=== PATIENT | male | born 1995 | race Two or more races ===

== ENCOUNTER 2024-05-10 11:43 | Inpatient (IN) | payer SELFPAY ==
[2024-05-10] MEDS: Ondansetron 4 MG/2 ML SDV IVPUSH ONE (12:25)
[2024-05-10] MEDS: Sodium Chloride 0.9% 1,000 ML IV ONE ×2 (12:25→15:44)
[2024-05-10] MEDS: Morphine 4 MG/ML Syringe IVPUSH ONE ×2 (12:26→14:33)
[2024-05-10 12:49] LABS: APPEARANCE,URINE CLEAR; BILIRUBIN,URINE NEGATIVE (NEGATIVE); COLOR,URINE YELLOW; GLUCOSE,URINE >=1000 mg/dL (NEGATIVE); KETONES,URINE 40 mg/dL (NEGATIVE); LEUKOCYTE ESTERASE,URINE NEGATIVE (NEGATIVE); NITRITE,URINE NEGATIVE (NEGATIVE); OCCULT BLOOD,URINE NEGATIVE (NEGATIVE); PROTEIN,URINE 100 mg/dL (NEGATIVE); UROBILINOGEN,URINE 0.2 EU/dL (<2.0)
[2024-05-10] MEDS: Ketorolac 30 MG/ML SDV IVPUSH ONE (12:50)
[2024-05-10 13:15] LABS: BASOPHILS ABSOLUTE AUTO 0.04 K/uL (0.00-0.20); BASOPHILS PERCENT AUTO 0.6 % (0.0-1.0); EOSINOPHILS ABSOLUTE AUTO 0.12 K/uL (0.00-0.45); EOSINOPHILS PERCENT AUTO 1.8 % (0.0-6.0); IMMATURE GRAN ABSOLUTE AUTO 0.04 K/uL (0.00-0.05); IMMATURE GRAN PERCENT AUTO 0.6 % (0.0-0.4); LYMPHOCYTES ABSOLUTE AUTO 1.77 K/uL (1.00-4.80); LYMPHOCYTES PERCENT AUTO 27.1 % (24.0-44.0); MEAN CORPUSCULAR VOLUME 86.2 fL (83.0-99.0); MEAN PLATELET VOLUME 11.1 fL (9.4-12.4); MONOCYTES ABSOLUTE AUTO 0.67 K/uL (0.00-0.80); MONOCYTES PERCENT AUTO 10.3 % (0.0-8.0); NEUTROPHILS ABSOLUTE AUTO 3.89 K/uL (1.80-7.70); NEUTROPHILS PERCENT AUTO 59.6 % (41.0-71.0); PLATELET COUNT,PLT 251 K/uL (150-400); RED BLOOD CELL COUNT 4.42 M/uL (4.52-5.90); WHITE BLOOD CELL COUNT,WBC 6.53 K/uL (3.9-11.3)
[2024-05-10 13:46] LABS: BACTERIA,URINE RARE (NEGATIVE); EPITHELIAL CELLS,URINE RARE (NONE-FEW); RBC,URINE 0-1 (0-2/HPF); WBC,URINE 0-2 (0-5/HPF)
[2024-05-10 13:58] LABS: HEMOGLOBIN 12.8 g/dL (14.0-18.0)
[2024-05-10 13:59] LABS: HEMATOCRIT 38.1 % (42.0-52.0)
[2024-05-10 14:00] LABS: MEAN CORPUSCULAR HGB CONC 33.6 g/dL (32.0-36.0)
[2024-05-10 14:17] LABS: A/G RATIO 0.9 (0.9-1.6); ALBUMIN 3.4 g/dL (3.4-5.0); BILIRUBIN TOTAL 0.6 mg/dL (0.2-1.0); CALCIUM 7.8 mg/dL (8.5-10.1); CARBON DIOXIDE,CO2 21.8 mmol/L (21.0-32.0); CREATININE 0.9 mg/dL (0.8-1.3); POTASSIUM,K 3.7 mmol/L (3.5-5.1); PROTEIN TOTAL,TP 7.3 g/dL (6.4-8.2)
[2024-05-10 14:30] LABS: EST CRCL DRUG DOSING (CG) 119.28 mL/min
[2024-05-10] MEDS: Iopamidol 755 MG/ML 500 ML Multipack Bottle IVPUSH STA (14:59)
[2024-05-10 15:31] LABS: HEMOGLOBIN A1C 12.1 %
[2024-05-10] MEDS: Morphine 2 MG/ML SYRINGE IVPUSH ONE (15:42)
[2024-05-10] MEDS ORDERED: Glucagon,Human Recombinant 1 MG Vial IM PRN (17:21)
[2024-05-10] MEDS ORDERED: Naloxone 0.4 MG/ML SDV IVPUSH PRN (17:21)
[2024-05-10] MEDS ORDERED: Acetaminophen 325 MG Tab PO PRN (17:21)
[2024-05-10] MEDS ORDERED: 50% Dextrose in Water 50 ML Syringe IVPUSH PRN (17:21)
[2024-05-10] MEDS ORDERED: Polyethylene Glycol 3350 Powder 17 GM Packet PO PRN (17:21)
[2024-05-10] MEDS: Ketorolac 30 MG/ML SDV IVPUSH PRN (18:05)
[2024-05-10] MEDS: Enoxaparin 40 MG/0.4 ML Syringe SUBCUT SCH (18:06)
[2024-05-10] MEDS: Sodium Chloride 0.9% 1,000 ML IV SCH (18:07)
[2024-05-10] MEDS: Morphine 2 MG/ML SYRINGE IVPUSH PRN ×2 (20:25→22:53)
[2024-05-10] MEDS ORDERED: Sennosides/Docusate Sodium 50-8.6 MG Tab PO PRN (21:00)
[2024-05-10] MEDS: Ondansetron 4 MG/2 ML SDV IVPUSH PRN (21:06)
[2024-05-10 22:07] LABS: CALCIUM 5.9 mg/dL (8.5-10.1); CARBON DIOXIDE,CO2 21.2 mmol/L (21.0-32.0); CREATININE 0.8 mg/dL (0.8-1.3); EST CRCL DRUG DOSING (CG) 125.16 mL/min; POTASSIUM,K 3.8 mmol/L (3.5-5.1)
[2024-05-11] MEDS: HYDROmorphone 1 MG/ML Syringe IVPUSH ONE (03:39)
[2024-05-11 05:36] LABS: BASOPHILS ABSOLUTE AUTO 0.02 K/uL (0.00-0.20); BASOPHILS PERCENT AUTO 0.2 % (0.0-1.0); EOSINOPHILS ABSOLUTE AUTO 0.03 K/uL (0.00-0.45); EOSINOPHILS PERCENT AUTO 0.4 % (0.0-6.0); HEMATOCRIT 38.4 % (42.0-52.0); IMMATURE GRAN ABSOLUTE AUTO 0.02 K/uL (0.00-0.05); IMMATURE GRAN PERCENT AUTO 0.2 % (0.0-0.4); LYMPHOCYTES ABSOLUTE AUTO 0.98 K/uL (1.00-4.80); LYMPHOCYTES PERCENT AUTO 11.5 % (24.0-44.0); MEAN CORPUSCULAR VOLUME 88.7 fL (83.0-99.0); MEAN PLATELET VOLUME 11.1 fL (9.4-12.4); MONOCYTES ABSOLUTE AUTO 0.38 K/uL (0.00-0.80); MONOCYTES PERCENT AUTO 4.5 % (0.0-8.0); NEUTROPHILS ABSOLUTE AUTO 7.08 K/uL (1.80-7.70); NEUTROPHILS PERCENT AUTO 83.2 % (41.0-71.0); PLATELET COUNT,PLT 218 K/uL (150-400); RED BLOOD CELL COUNT 4.33 M/uL (4.52-5.90); WHITE BLOOD CELL COUNT,WBC 8.51 K/uL (3.9-11.3)
[2024-05-11 05:48] LABS: HEMOGLOBIN 12.9 g/dL (14.0-18.0); MEAN CORPUSCULAR HEMOGLOBIN 29.8 pg (28.0-32.0)
[2024-05-11 05:49] LABS: MEAN CORPUSCULAR HGB CONC 33.6 g/dL (32.0-36.0)
[2024-05-11 06:22] LABS: A/G RATIO 0.7 (0.9-1.6); ALBUMIN 2.5 g/dL (3.4-5.0); ALKALINE PHOSPHATASE 74 U/L (46-116); BILIRUBIN TOTAL 0.6 mg/dL (0.2-1.0); BLOOD UREA NITROGEN,BUN 7 mg/dL (7.0-18.0); CALCIUM 5.1 mg/dL (8.5-10.1); CHLORIDE,CL 104 mmol/L (98-107); CREATININE 0.9 mg/dL (0.8-1.3); EST CRCL DRUG DOSING (CG) 111.26 mL/min; ESTIMATED GFR 120 mL/min (>60); GLUCOSE RANDOM 368 mg/dL (74-106); POTASSIUM,K 3.9 mmol/L (3.5-5.1); SODIUM,NA 136 mmol/L (136-148); TSH ULTRASENSITIVE 0.37 uIU/mL (0.36-3.74)
[2024-05-11] MEDS: Insulin Aspart 100 Units/ML 3 ML Pen SUBCUT SCH ×2 (07:07→12:07)
[2024-05-11] MEDS ORDERED: Insulin Aspart 100 Units/ML 3 ML Pen SUBCUT SCH (07:15)
[2024-05-11 07:44] LABS: ALANINE AMINOTRANSFERASE,ALT 21 IU/L (14-63); ASPARTATE AMNIOTRANSFERASE,AST 10 IU/L (15-37); LIPASE 1543 U/L (16-77)
[2024-05-11 07:46] LABS: CHOLESTEROL HDL 45 mg/dL (40-60); CHOLESTEROL TOTAL 351 mg/dL (50-200); TRIGLYCERIDES 4631 mg/dL (0-200)
[2024-05-11] MEDS: HYDROmorphone 1 MG/ML Syringe IVPUSH PRN (08:07)
[2024-05-11] MEDS ORDERED: Calcium Gluconate 10% 1 GM/10 ML SDV IV ONE ×2 (10:00→16:43)
[2024-05-11] MEDS: Calcium Gluc in NaCl, ISO-OSM 1,000 MG in Premix Bag 1 BAG IV SCH (10:56)
[2024-05-11] MEDS: Insulin Regular in 0.9 % NACL 100 ML IV SCH (11:01)
[2024-05-11] MEDS: Dextrose 5%-0.9% NaCl 1,000 ML IV SCH (16:06)
[2024-05-11 16:25] LABS: CARBON DIOXIDE,CO2 21.1 mmol/L (21.0-32.0); CREATININE 0.7 mg/dL (0.8-1.3); EST CRCL DRUG DOSING (CG) 143.04 mL/min; POTASSIUM,K 3.3 mmol/L (3.5-5.1)
[2024-05-11 16:31] LABS: CALCIUM 4.8 mg/dL (8.5-10.1)
[2024-05-11] MEDS: Magnesium Sulfate/Water 4 GM in Premix Bag 1 BAG IV ONE (16:57)
[2024-05-11] MEDS: Potassium Chloride 10 MEQ in Premix Bag 1 BAG IV SCH (17:00)
[2024-05-11] MEDS: Calcium Gluc in NaCl, ISO-OSM 1,000 MG in Premix Bag 1 BAG IV ONE (17:13)
[2024-05-11 22:40] LABS: A/G RATIO 0.5 (0.9-1.6); BILIRUBIN TOTAL 0.5 mg/dL (0.2-1.0); CALCIUM 5.5 mg/dL (8.5-10.1); CARBON DIOXIDE,CO2 21.9 mmol/L (21.0-32.0); CREATININE 0.7 mg/dL (0.8-1.3); EST CRCL DRUG DOSING (CG) 143.04 mL/min; MAGNESIUM 2.5 mg/dL (1.8-2.4); PROTEIN TOTAL,TP 5.7 g/dL (6.4-8.2)
[2024-05-11] MEDS: Calcium Gluconate 10% 1 GM/10 ML SDV IVPUSH ONE (22:48)
[2024-05-12 05:31] LABS: HEMATOCRIT 40.1 % (42.0-52.0); HEMOGLOBIN 14.1 g/dL (14.0-18.0); MEAN CORPUSCULAR HEMOGLOBIN 30.9 pg (28.0-32.0); MEAN CORPUSCULAR HGB CONC 35.2 g/dL (32.0-36.0); MEAN CORPUSCULAR VOLUME 87.7 fL (83.0-99.0); MEAN PLATELET VOLUME 11.5 fL (9.4-12.4); PLATELET COUNT,PLT 232 K/uL (150-400); RED BLOOD CELL COUNT 4.57 M/uL (4.52-5.90); WHITE BLOOD CELL COUNT,WBC 7.34 K/uL (3.9-11.3)
[2024-05-12 06:06] LABS: A/G RATIO 0.5 (0.9-1.6); ALBUMIN 1.9 g/dL (3.4-5.0); BILIRUBIN TOTAL 0.7 mg/dL (0.2-1.0); CREATININE 0.9 mg/dL (0.8-1.3); EST CRCL DRUG DOSING (CG) 111.26 mL/min; POTASSIUM,K 3.7 mmol/L (3.5-5.1); PROTEIN TOTAL,TP 5.9 g/dL (6.4-8.2)
[2024-05-12 06:08] LABS: EOSINOPHILS ABSOLUTE MAN 0.15 K/uL (0.00-0.45); EOSINOPHILS PERCENT MAN 2 % (0-6); LYMPHOCYTES PERCENT MAN 15 % (24-44)
[2024-05-12 06:10] LABS: BAND ABSOLUTE MAN 0.29; BAND PERCENT MAN 4 %; MONOCYTES ABSOLUTE MAN 0.37 K/uL (0.00-0.80); MONOCYTES PERCENT MAN 5 % (0-8); SEG NEUTROPHILS ABSOLUTE MAN 5.43 K/uL (1.80-7.70); SEG NEUTROPHILS PERCENT MAN 74 % (41-71)
[2024-05-12 06:32] LABS: CALCIUM 5.6 mg/dL (8.5-10.1); CARBON DIOXIDE,CO2 21.2 mmol/L (21.0-32.0); MAGNESIUM 2.5 mg/dL (1.8-2.4)
[2024-05-13 05:53] LABS: HEMATOCRIT 34.7 % (42.0-52.0); HEMOGLOBIN 11.8 g/dL (14.0-18.0); MEAN CORPUSCULAR HEMOGLOBIN 30.3 pg (28.0-32.0); MEAN CORPUSCULAR VOLUME 89.2 fL (83.0-99.0); MEAN PLATELET VOLUME 11.3 fL (9.4-12.4); NRBC ABSOLUTE 0.02 K/uL (0.00-0.02); NRBC PERCENT 0.3 /100WBC (0.0-0.2); PLATELET COUNT,PLT 198 K/uL (150-400); RED BLOOD CELL COUNT 3.89 M/uL (4.52-5.90); WHITE BLOOD CELL COUNT,WBC 6.72 K/uL (3.9-11.3)
[2024-05-13 06:19] LABS: ALBUMIN 1.8 g/dL (3.4-5.0); BILIRUBIN TOTAL 0.8 mg/dL (0.2-1.0); CALCIUM 6.3 mg/dL (8.5-10.1); CARBON DIOXIDE,CO2 23.4 mmol/L (21.0-32.0); CREATININE 0.8 mg/dL (0.8-1.3); EST CRCL DRUG DOSING (CG) 125.16 mL/min; POTASSIUM,K 3.5 mmol/L (3.5-5.1); PROTEIN TOTAL,TP 5.8 g/dL (6.4-8.2)
[2024-05-13 06:21] LABS: A/G RATIO 0.5 (0.9-1.6)
[2024-05-13 06:39] LABS: BAND ABSOLUTE MAN 0.47; BAND PERCENT MAN 7 %; EOSINOPHILS ABSOLUTE MAN 0.13 K/uL (0.00-0.45); EOSINOPHILS PERCENT MAN 2 % (0-6); LYMPHOCYTES ABSOLUTE MAN 0.94 K/uL (1.00-4.80); LYMPHOCYTES PERCENT MAN 14 % (24-44); MONOCYTES ABSOLUTE MAN 0.34 K/uL (0.00-0.80); MONOCYTES PERCENT MAN 5 % (0-8); SEG NEUTROPHILS ABSOLUTE MAN 4.84 K/uL (1.80-7.70); SEG NEUTROPHILS PERCENT MAN 72 % (41-71)
[2024-05-13] MEDS ORDERED: 50% Dextrose in Water 50 ML Syringe IVPUSH PRN (12:35)
[2024-05-13] MEDS ORDERED: Glucagon,Human Recombinant 1 MG Vial IM PRN (12:35)
[2024-05-13] MEDS ORDERED: Insulin Aspart 100 Units/ML 3 ML Pen SUBCUT SCH (17:00)
[2024-05-14 06:26] LABS: HEMATOCRIT 31.6 % (42.0-52.0); HEMOGLOBIN 10.6 g/dL (14.0-18.0); MEAN CORPUSCULAR HEMOGLOBIN 30.2 pg (28.0-32.0); MEAN CORPUSCULAR HGB CONC 33.5 g/dL (32.0-36.0); MEAN PLATELET VOLUME 11.1 fL (9.4-12.4); NRBC ABSOLUTE 0.03 K/uL (0.00-0.02); NRBC PERCENT 0.5 /100WBC (0.0-0.2); PLATELET COUNT,PLT 229 K/uL (150-400); RED BLOOD CELL COUNT 3.51 M/uL (4.52-5.90); WHITE BLOOD CELL COUNT,WBC 6.25 K/uL (3.9-11.3)
[2024-05-14 06:51] LABS: A/G RATIO 0.4 (0.9-1.6); ALBUMIN 1.7 g/dL (3.4-5.0); BILIRUBIN TOTAL 0.6 mg/dL (0.2-1.0); CALCIUM 6.9 mg/dL (8.5-10.1); CARBON DIOXIDE,CO2 24.8 mmol/L (21.0-32.0); CREATININE 0.7 mg/dL (0.8-1.3); EST CRCL DRUG DOSING (CG) 143.04 mL/min; POTASSIUM,K 3.2 mmol/L (3.5-5.1); PROTEIN TOTAL,TP 5.8 g/dL (6.4-8.2)
[2024-05-14 07:01] LABS: SEG NEUTROPHILS ABSOLUTE MAN 4.25 K/uL (1.80-7.70); SEG NEUTROPHILS PERCENT MAN 68 % (41-71)
[2024-05-14 07:02] LABS: BAND ABSOLUTE MAN 0.44; BAND PERCENT MAN 7 %; EOSINOPHILS ABSOLUTE MAN 0.13 K/uL (0.00-0.45); EOSINOPHILS PERCENT MAN 2 % (0-6); LYMPHOCYTES ABSOLUTE MAN 1.06 K/uL (1.00-4.80); LYMPHOCYTES PERCENT MAN 17 % (24-44); METAMYELOCYTE ABSOLUTE MAN 0.06; METAMYELOCYTE PERCENT MAN 1 %; MONOCYTES ABSOLUTE MAN 0.25 K/uL (0.00-0.80); MONOCYTES PERCENT MAN 4 % (0-8); MYELOCYTE ABSOLUTE MAN 0.06; MYELOCYTE PERCENT MAN 1 %
[2024-05-14] MEDS: Potassium Chloride 20 MEQ Tab.ER PO ONE (08:40)
[2024-05-14] MEDS ORDERED: Glucagon,Human Recombinant 1 MG Vial IM PRN (15:35)
[2024-05-14] MEDS ORDERED: 50% Dextrose in Water 50 ML Syringe IVPUSH PRN (15:35)
[2024-05-14] MEDS: Insulin Glargine,Hum.Rec.Anlog 100 UNIT/ML 3 ML Pen SUBCUT SCH (21:31)
[2024-05-15] MEDS: Insulin Aspart 100 Units/ML 3 ML Pen SUBCUT SCH (00:41)
[2024-05-15 06:59] LABS: HEMATOCRIT 33.7 % (42.0-52.0); HEMOGLOBIN 10.8 g/dL (14.0-18.0); MEAN CORPUSCULAR HEMOGLOBIN 29.4 pg (28.0-32.0); MEAN CORPUSCULAR VOLUME 91.8 fL (83.0-99.0); MEAN PLATELET VOLUME 10.6 fL (9.4-12.4); NRBC ABSOLUTE 0.07 K/uL (0.00-0.02); NRBC PERCENT 0.9 /100WBC (0.0-0.2); PLATELET COUNT,PLT 250 K/uL (150-400); RED BLOOD CELL COUNT 3.67 M/uL (4.52-5.90); WHITE BLOOD CELL COUNT,WBC 7.73 K/uL (3.9-11.3)
[2024-05-15 07:40] LABS: A/G RATIO 0.4 (0.9-1.6); ALBUMIN 1.8 g/dL (3.4-5.0); BILIRUBIN TOTAL 0.7 mg/dL (0.2-1.0); CALCIUM 8.3 mg/dL (8.5-10.1); CARBON DIOXIDE,CO2 27.6 mmol/L (21.0-32.0); CREATININE 0.7 mg/dL (0.8-1.3); EST CRCL DRUG DOSING (CG) 143.04 mL/min; POTASSIUM,K 3.8 mmol/L (3.5-5.1); PROTEIN TOTAL,TP 6.5 g/dL (6.4-8.2)
[2024-05-15 09:28] LABS: BAND ABSOLUTE MAN 0.31; BAND PERCENT MAN 4 %; EOSINOPHILS ABSOLUTE MAN 0.23 K/uL (0.00-0.45); EOSINOPHILS PERCENT MAN 3 % (0-6); LYMPHOCYTES ABSOLUTE MAN 1.16 K/uL (1.00-4.80); LYMPHOCYTES PERCENT MAN 15 % (24-44); METAMYELOCYTE ABSOLUTE MAN 0.08; METAMYELOCYTE PERCENT MAN 1 %; MONOCYTES ABSOLUTE MAN 0.54 K/uL (0.00-0.80); MONOCYTES PERCENT MAN 7 % (0-8); MYELOCYTE ABSOLUTE MAN 0.23; MYELOCYTE PERCENT MAN 3 %; SEG NEUTROPHILS ABSOLUTE MAN 5.18 K/uL (1.80-7.70); SEG NEUTROPHILS PERCENT MAN 67 % (41-71)
[2024-05-15] MEDS: Fenofibrate,Micronized 67 MG Cap PO SCH (13:42)
[2024-05-16 08:34] LABS: HEMATOCRIT 32.6 % (42.0-52.0); HEMOGLOBIN 10.7 g/dL (14.0-18.0); MEAN CORPUSCULAR HEMOGLOBIN 29.9 pg (28.0-32.0); MEAN CORPUSCULAR HGB CONC 32.8 g/dL (32.0-36.0); MEAN CORPUSCULAR VOLUME 91.1 fL (83.0-99.0); MEAN PLATELET VOLUME 10.4 fL (9.4-12.4); NRBC ABSOLUTE 0.15 K/uL (0.00-0.02); NRBC PERCENT 1.5 /100WBC (0.0-0.2); PLATELET COUNT,PLT 285 K/uL (150-400); RED BLOOD CELL COUNT 3.58 M/uL (4.52-5.90); WHITE BLOOD CELL COUNT,WBC 9.86 K/uL (3.9-11.3)
[2024-05-16 08:52] LABS: CALCIUM 8.4 mg/dL (8.5-10.1); CARBON DIOXIDE,CO2 25.9 mmol/L (21.0-32.0); CREATININE 0.8 mg/dL (0.8-1.3); EST CRCL DRUG DOSING (CG) 125.16 mL/min; POTASSIUM,K 3.8 mmol/L (3.5-5.1)
[2024-05-16 09:29] LABS: BAND ABSOLUTE MAN 1.18; BAND PERCENT MAN 12 %; EOSINOPHILS PERCENT MAN 3 % (0-6); LYMPHOCYTES ABSOLUTE MAN 1.58 K/uL (1.00-4.80); LYMPHOCYTES PERCENT MAN 16 % (24-44); METAMYELOCYTE ABSOLUTE MAN 0.39; METAMYELOCYTE PERCENT MAN 4 %; MONOCYTES ABSOLUTE MAN 0.99 K/uL (0.00-0.80); MONOCYTES PERCENT MAN 10 % (0-8); MYELOCYTE ABSOLUTE MAN 0.49; MYELOCYTE PERCENT MAN 5 %; SEG NEUTROPHILS ABSOLUTE MAN 4.93 K/uL (1.80-7.70); SEG NEUTROPHILS PERCENT MAN 50 % (41-71)
[2024-05-16] MEDS: oxyCODONE 5 MG Tab PO PRN (12:48)
== END 2024-05-16 13:55 | disposition home or self-care (01) | DRG 439 ==
LOC: MW.ED 11:43 → MW.MS 15:33 → MW.ICU 05-11 16:00 → MW.MS 05-14 20:04
PROVIDERS: ADMIT Family Medicine; ATTEND Family Medicine
DX: K85.90 Acute pancreatitis without necrosis or infection, unspecified (principal); Z68.42 Body mass index [BMI] 45.0-49.9, adult; E11.9 Type 2 diabetes mellitus without complications; E66.9 Obesity, unspecified; E78.1 Pure hyperglyceridemia; E83.51 Hypocalcemia; Z79.84 Long term (current) use of oral hypoglycemic drugs
CPT/HCPCS: 36415; 71045; 71045-26; 71275; 71275-26; 74177; 74177-26; 80048; 80053; 80061; 81001; 82947; 83036; 83690; 83735; 84443; 84478; 84484; 85025; 93005; 93010; 96361; 96374; 96375; 96376; 99283; 99285-25; A9270-GY; J0612; J0613; J1170; J1650; J1815; J1815-GY; J1885; J2270; J2405; J3475; J3480; J7030; J7042; Q9967